=== PATIENT | male | born 1980 | race Caucasian/White ===

== ENCOUNTER 2017-12-03 08:07 | Inpatient (IN) | payer MEDICAID, OTHER ==
[~2017-12-03] VITALS: Ht 172.7 cm; Wt 103.0 kg
[2017-12-03 08:48] LABS: Basophils # (auto) 0.1 uL; Eosinophils # (auto) 0.3 uL; Lymphocytes # (auto) 2.6 uL
[2017-12-03 08:49] LABS: Basophils % (auto) 0.7 % (0.0-2.0); Eosinophils % (auto) 2.9 % (0.0-7.0); Hematocrit 40.1 % (41.0-53.0); Hemoglobin 12.7 g/dL (13.5-17.5); Lymphocytes % (auto) 26.8 % (10.0-50.0); Mean Corpuscular Hemoglobin 25.2 pg (28.0-32.0); Mean Corpuscular Hgb Conc. 31.7 g/dL (32.0-36.0); Mean Corpuscular Volume 79.6 fL (80.0-100.0); Monocytes # (auto) 1.1 uL; Neutrophils # (auto) 5.6 uL; Neutrophils % (auto) 58.6 % (37.0-80.0); Platelet Count (auto) 337 10^3/uL (140-450); Red Blood Cells 5.04 10^6/uL (4.5-5.90); Red Cell Distribution Width 16.2 % (11.8-14.3); White Blood Cell 9.6 10^3/uL (4.4-10.8)
[2017-12-03 09:06] LABS: Albumin 3.1 g/dL (3.4-5.0); BUN/Creatinine Ratio 25.6; Calcium 8.2 mg/dL (8.5-10.1); Magnesium 2.2 mg/dL (1.6-2.6); Potassium 4.1 mmol/L (3.5-5.1)
[2017-12-03 09:11] LABS: Bilirubin, Total 0.8 mg/dL (0.2-1.0); Total Protein 6.4 g/dL (6.4-8.2)
[2017-12-03] MEDS ORDERED: SODIUM CHLORIDE 0.9% 1,000 ML IV ONE (10:05)
[2017-12-03] MEDS ORDERED: SPIRONOLACTONE 25 MG TAB PO ONE (10:15)
[2017-12-03] MEDS ORDERED: FUROSEMIDE 40 MG/4 ML VIAL IV ONE ×2 (10:15→12:45)
[2017-12-03] MEDS ORDERED: LABETALOL HCL 5 MG/ML ML 20ML VIAL IV ONE (10:15)
[2017-12-03] MEDS ORDERED: PROMETHAZINE HCL 25 MG/ML 1ML IV PRN (11:15)
[2017-12-03] MEDS ORDERED: HYDROcodone-ACET 5/325MG TAB PO PRN (11:15)
[2017-12-03] MEDS ORDERED: NITROGLYCERIN 0.4 MG SL TAB SL PRN (11:15)
[2017-12-03] MEDS ORDERED: MORPHINE SULFATE 8mg/ml INJ SDV IV PRN ×2 (11:15)
[2017-12-03] MEDS ORDERED: LACTULOSE 20Gm/30ML SOLN PO PRN (11:15)
[2017-12-03] MEDS ORDERED: TEMAZEPAM 15 MG CAP PO PRN (11:15)
[2017-12-03] MEDS ORDERED: LORazepam 0.5 MG TAB PO PRN (11:15)
[2017-12-03] MEDS ORDERED: ACETAMINOPHEN 500 MG TAB PO PRN (11:15)
[2017-12-03] MEDS ORDERED: NITROGLYCERIN 0.2MG/HR TOPICAL PATCH TD SCH (11:30)
[2017-12-03] MEDS: ENALAPRIL MALEATE 2.5 MG TAB PO SCH (11:39)
[2017-12-03] MEDS: POTASSIUM CHL 20 Meq TABLET PO SCH (11:39)
[2017-12-03] MEDS: ENOXAPARIN SOD 40 MG/0.4 ML SYRINGE SC SCH (11:39)
[2017-12-03] MEDS: PANTOPRAZOLE 40 MG TAB PO SCH (11:39)
[2017-12-03] MEDS: ASPirin 81 mg TAB PO SCH (11:40)
[2017-12-03] MEDS: CARVEDILOL 3.125 MG TAB PO SCH ×2 (11:40→21:57)
[2017-12-03] MEDS ORDERED: POTASSIUM CHL 20 Meq TABLET PO ONE (12:45)
[2017-12-03] MEDS: SODIUM CHLOR 0.9% PF (SALINE LOCK) 10ML VIAL/SYR IV SCH ×2 (13:42→21:54)
[2017-12-03 15:25] VITALS: BP 145/96
[2017-12-03 16:48] VITALS: BP 139/82
[2017-12-03] MEDS: FUROSEMIDE 40 MG/4 ML VIAL IV SCH (17:39)
[2017-12-03 19:36] LABS: Alcohol, Urine < 3.0 mg/dL (0-5); Barbiturate Scree,Urine NEGATIVE (NEGATIVE); Benzodiazephine Screen, Urine NEGATIVE (NEGATIVE); Cannabinoid Screen, Urine NEGATIVE (NEGATIVE); Cocaine Screen, Urine NEGATIVE (NEGATIVE); Opiate Scree,Urine NEGATIVE (NEGATIVE); Phencyclidine Screen, Urine NEGATIVE (NEGATIVE)
[2017-12-03 19:47] LABS: Amphetamine Screen, Urine POSITIVE (NEGATIVE)
[2017-12-03 21:56] VITALS: BP 128/65
[2017-12-03] MEDS: ATORVASTATIN 20 MG TAB PO SCH (21:56)
[2017-12-04 05:00] VITALS: BP 128/79
[2017-12-04] MEDS: SODIUM CHLOR 0.9% PF (SALINE LOCK) 10ML VIAL/SYR IV SCH ×3 (05:36→22:14)
[2017-12-04] MEDS: FUROSEMIDE 40 MG/4 ML VIAL IV SCH ×2 (05:39→18:04)
[2017-12-04 07:30] LABS: Basophils # (auto) 0.1 uL; Eosinophils # (auto) 0.4 uL; Monocytes # (auto) 1.1 uL; Nucleated Red Blood Cells % 0.1 %
[2017-12-04 07:33] LABS: Basophils % (auto) 0.6 % (0.0-2.0); Eosinophils % (auto) 4.3 % (0.0-7.0); Hemoglobin 12.8 g/dL (13.5-17.5); Lymphocytes # (auto) 2.8 uL; Mean Corpuscular Hemoglobin 25.3 pg (28.0-32.0); Mean Corpuscular Hgb Conc. 31.9 g/dL (32.0-36.0); Mean Corpuscular Volume 79.3 fL (80.0-100.0); Monocytes % (auto) 13.1 % (0.0-12.0); Neutrophils # (auto) 4.3 uL; Platelet Count (auto) 317 10^3/uL (140-450); Red Blood Cells 5.05 10^6/uL (4.5-5.90); Red Cell Distribution Width 16.2 % (11.8-14.3); White Blood Cell 8.6 10^3/uL (4.4-10.8)
[2017-12-04 07:43] LABS: BUN/Creatinine Ratio 18.7; Bilirubin, Total 0.8 mg/dL (0.2-1.0); Calcium 8.4 mg/dL (8.5-10.1); Potassium 3.9 mmol/L (3.5-5.1); Total Protein 6.1 g/dL (6.4-8.2)
[2017-12-04] MEDS: POTASSIUM CHL 20 Meq TABLET PO SCH (08:48)
[2017-12-04] MEDS: PANTOPRAZOLE 40 MG TAB PO SCH (08:48)
[2017-12-04] MEDS: ENOXAPARIN SOD 40 MG/0.4 ML SYRINGE SC SCH (08:48)
[2017-12-04] MEDS: CARVEDILOL 3.125 MG TAB PO SCH ×2 (08:49→22:13)
[2017-12-04] MEDS: ASPirin 81 mg TAB PO SCH (08:49)
[2017-12-04] MEDS: ENALAPRIL MALEATE 2.5 MG TAB PO SCH (08:49)
[2017-12-04 08:59] VITALS: BP 148/85
[2017-12-04] MEDS ORDERED: FUROSEMIDE 40 MG/4 ML VIAL IV SCH (10:00)
[2017-12-04 11:45] LABS: % Iron Saturation 5.3 % (20-55)
[2017-12-04] MEDS ORDERED: CARVEDILOL 3.125 MG TAB PO ONE (12:15)
[2017-12-04 13:20] VITALS: BP 141/97
[2017-12-04 17:00] VITALS: BP 137/99
[2017-12-04 22:00] VITALS: BP 127/79
[2017-12-04] MEDS: ATORVASTATIN 20 MG TAB PO SCH (22:13)
[2017-12-05 04:52] LABS: Urine Bacteria NONE SEEN /hpf (None Seen); Urine Blood Negative /uL (Negative); Urine Specific Gravity 1.013 (1.001-1.035); Urine WBC 1 /hpf (0 - 3)
[2017-12-05 05:00] VITALS: BP 134/134
[2017-12-05] MEDS: SODIUM CHLOR 0.9% PF (SALINE LOCK) 10ML VIAL/SYR IV SCH ×3 (06:04→21:48)
[2017-12-05] MEDS: FUROSEMIDE 40 MG/4 ML VIAL IV SCH ×2 (06:04→17:49)
[2017-12-05 07:32] LABS: INR 1.06 (0.9-1.15); Partial Thromboplastin Time 25.2 sec (22.64-33.71); Prothrombin Time 11.6 sec (9.37-12.3)
[2017-12-05 07:43] LABS: Calcium 8.5 mg/dL (8.5-10.1); Magnesium 2.4 mg/dL (1.6-2.6); Potassium 4.4 mmol/L (3.5-5.1)
[2017-12-05] MEDS ORDERED: IODIXANOL 320MG/ML 100ML BTL IV ONE (07:50)
[2017-12-05] MEDS ORDERED: LIDOCAINE HCL 2 %PF INJ 10ML AMP IJ ONE (07:50)
[2017-12-05] MEDS: POTASSIUM CHL 20 Meq TABLET PO SCH (10:00)
[2017-12-05] MEDS: ENALAPRIL MALEATE 2.5 MG TAB PO SCH (10:00)
[2017-12-05] MEDS: PANTOPRAZOLE 40 MG TAB PO SCH (10:00)
[2017-12-05] MEDS: CARVEDILOL 3.125 MG TAB PO SCH ×2 (10:00→21:55)
[2017-12-05] MEDS ORDERED: MIDAZOLAM HCL 1MG/1ML-2 ML VIAL ONE (10:12)
[2017-12-05] MEDS ORDERED: fentaNYL CITRATE 100 MCG/2 ML VL ONE (10:12)
[2017-12-05] MEDS ORDERED: HEPARIN SODIUM (PORCINE) 5000 UNITS/ML 1ML VIAL ONE (10:18)
[2017-12-05 10:27] VITALS: BP 142/101
[2017-12-05] MEDS ORDERED: FUROSEMIDE 40 MG/4 ML VIAL ONE (10:59)
[2017-12-05] MEDS ORDERED: VERAPAMIL 2.5MG/ML INJ 2ML VIAL IV ONE (11:15)
[2017-12-05] MEDS ORDERED: ENALAPRIL MALEATE 2.5 MG TAB PO ONE ×2 (15:00)
[2017-12-05 17:02] VITALS: BP 140/85
[2017-12-05 21:30] VITALS: BP 131/75
[2017-12-06 04:53] VITALS: BP 133/76
[2017-12-06] MEDS: FUROSEMIDE 40 MG/4 ML VIAL IV SCH (05:32)
[2017-12-06 07:08] LABS: Potassium 3.8 mmol/L (3.5-5.1)
[2017-12-06 08:43] VITALS: BP 129/74
[2017-12-06 09:13] LABS: Basophils # (auto) 0.1 uL; Eosinophils # (auto) 0.4 uL; Lymphocytes # (auto) 2.8 uL; Nucleated Red Blood Cells % 0.1 %; White Blood Cell 8.8 10^3/uL (4.4-10.8)
[2017-12-06 09:15] LABS: Basophils % (auto) 1.1 % (0.0-2.0); Eosinophils % (auto) 4.3 % (0.0-7.0); Hematocrit 41.5 % (41.0-53.0); Mean Corpuscular Hemoglobin 24.8 pg (28.0-32.0); Mean Corpuscular Hgb Conc. 31.3 g/dL (32.0-36.0); Monocytes # (auto) 1.1 uL; Neutrophils # (auto) 4.5 uL; Neutrophils % (auto) 50.6 % (37.0-80.0); Platelet Count (auto) 348 10^3/uL (140-450); Red Blood Cells 5.25 10^6/uL (4.5-5.90); Red Cell Distribution Width 16.1 % (11.8-14.3)
[2017-12-06] MEDS ORDERED: ENALAPRIL MALEATE 10 MG TAB PO SCH (10:00)
[2017-12-06] MEDS: CARVEDILOL 3.125 MG TAB PO SCH (11:05)
[2017-12-06] MEDS: POTASSIUM CHL 20 Meq TABLET PO SCH (11:06)
[2017-12-06] MEDS: PANTOPRAZOLE 40 MG TAB PO SCH (11:06)
== END 2017-12-06 11:35 | disposition home or self-care (01) | DRG 192 ==
LOC: ER 08:07 → TELE 08:08 → TELE-EAST 15:37
PROVIDERS: ADMIT Internal Medicine; ATTEND Internal Medicine
PROC: 4A023N7 Measurement of Cardiac Sampling and Pressure, Left Heart, Percutaneous Approach (ICD-10-PCS; principal; 2017-12-05)
PROC: B2111ZZ Fluoroscopy of Multiple Coronary Arteries using Low Osmolar Contrast (ICD-10-PCS; 2017-12-05)
PROC: B2151ZZ Fluoroscopy of Left Heart using Low Osmolar Contrast (ICD-10-PCS; 2017-12-05)
DX: I11.0 Hypertensive heart disease with heart failure (principal); I42.8 Other cardiomyopathies; E44.1 Mild protein-calorie malnutrition; E66.01 Morbid (severe) obesity due to excess calories; D50.9 Iron deficiency anemia, unspecified; F17.210 Nicotine dependence, cigarettes, uncomplicated; I16.0 Hypertensive urgency; I50.23 Acute on chronic systolic (congestive) heart failure; E78.5 Hyperlipidemia, unspecified; Z86.73 Personal history of transient ischemic attack (TIA), and cerebral infarction without residual deficits; Z91.19 Patient's noncompliance with other medical treatment and regimen; Z88.0 Allergy status to penicillin; Z71.89 Other specified counseling; Z68.34 Body mass index [BMI] 34.0-34.9, adult
CPT/HCPCS: 36415; 71046; 80048; 80053; 80061; 80307; 81001; 82550; 83540; 83550; 83735; 83880; 84443; 84484; 85025; 85610; 85652; 85730; 86141; 86658; 86703; 86850; 86900; 86901; 93005; 93306; 93458; 94761; 96361; 96372; 96374; 96375; 99152; J2250; Q9967

== ENCOUNTER 2018-04-13 11:23 | Emergency (ER) | payer MEDICAID ==
[~2018-04-13] VITALS: Ht 172.7 cm; Wt 99.8 kg
[2018-04-13] MEDS ORDERED: FUROSEMIDE 40 MG/4 ML VIAL IV ONE ×3 (12:30→17:45)
[2018-04-13 13:13] LABS: Basophils # (auto) 0.1 uL; Eosinophils # (auto) 0.3 uL; Hematocrit 40.9 % (41.0-53.0); Monocytes % (auto) 11.9 % (0.0-12.0); Nucleated Red Blood Cells % 0.1 %
[2018-04-13 13:15] LABS: Basophils % (auto) 0.6 % (0.0-2.0); Eosinophils % (auto) 3.4 % (0.0-7.0); Hemoglobin 12.9 g/dL (13.5-17.5); Lymphocytes % (auto) 30.7 % (10.0-50.0); Mean Corpuscular Hemoglobin 23.9 pg (28.0-32.0); Mean Corpuscular Hgb Conc. 31.6 g/dL (32.0-36.0); Mean Corpuscular Volume 75.7 fL (80.0-100.0); Monocytes # (auto) 1.2 uL; Neutrophils # (auto) 5.2 uL; Neutrophils % (auto) 53.4 % (37.0-80.0); Platelet Count (auto) 320 10^3/uL (140-450); Red Blood Cells 5.41 10^6/uL (4.5-5.90); Red Cell Distribution Width 18.5 % (11.8-14.3); White Blood Cell 9.7 10^3/uL (4.4-10.8)
[2018-04-13 13:31] LABS: Albumin 3.1 g/dL (3.4-5.0); BUN/Creatinine Ratio 20.3; Calcium 8.5 mg/dL (8.5-10.1); Potassium 4.5 mmol/L (3.5-5.1)
[2018-04-13 13:36] LABS: Bilirubin, Total 1.2 mg/dL (0.2-1.0); Total Protein 6.8 g/dL (6.4-8.2)
[2018-04-13] MEDS ORDERED: IOHEXOL 350 MG/ML 100ML IJ ONE (14:17)
[2018-04-13 18:56] VITALS: BP 158/98
[2018-04-13 19:34] LABS: Alcohol, Urine < 3.0 mg/dL (0-5); Amphetamine Screen, Urine POSITIVE (NEGATIVE); Barbiturate Scree,Urine NEGATIVE (NEGATIVE); Benzodiazephine Screen, Urine NEGATIVE (NEGATIVE); Cannabinoid Screen, Urine NEGATIVE (NEGATIVE); Cocaine Screen, Urine NEGATIVE (NEGATIVE); Opiate Scree,Urine NEGATIVE (NEGATIVE); Phencyclidine Screen, Urine NEGATIVE (NEGATIVE)
== END 2018-04-13 19:07 | disposition home or self-care (01) ==
LOC: ER 11:27
DX: I11.0 Hypertensive heart disease with heart failure (principal); I50.9 Heart failure, unspecified; I16.0 Hypertensive urgency; F41.9 Anxiety disorder, unspecified; H10.9 Unspecified conjunctivitis; J45.909 Unspecified asthma, uncomplicated; F17.210 Nicotine dependence, cigarettes, uncomplicated
CPT/HCPCS: 36415; 71046; 71275; 80053; 80307; 83880; 84484; 85025; 85379; 93005; 96374; 96376; 99285; J1940; Q9967

== ENCOUNTER 2019-06-27 15:29 | Inpatient (IN) | payer MEDICAID ==
[~2019-06-27] VITALS: Ht 172.7 cm; Wt 104.5 kg
[2019-06-27 16:16] LABS: Basophils # (auto) 0.1 uL; Eosinophils # (auto) 0.5 uL; Lymphocytes # (auto) 1.5 uL; Nucleated Red Blood Cells % 0.1 %
[2019-06-27 16:18] LABS: Basophils % (auto) 1.6 % (0.0-2.0); Hematocrit 41.8 % (41.0-53.0); Hemoglobin 13.1 g/dL (13.5-17.5); Mean Corpuscular Hemoglobin 24.8 pg (28.0-32.0); Mean Corpuscular Hgb Conc. 31.4 g/dL (32.0-36.0); Mean Corpuscular Volume 79.1 fL (80.0-100.0); Monocytes # (auto) 1.3 uL; Monocytes % (auto) 15.9 % (0.0-12.0); Neutrophils # (auto) 4.8 uL; Neutrophils % (auto) 58.5 % (37.0-80.0); Platelet Count (auto) 324 10^3/uL (140-450); Red Blood Cells 5.28 10^6/uL (4.5-5.90); White Blood Cell 8.2 10^3/uL (4.4-10.8)
[2019-06-27 16:32] LABS: Albumin 3.2 g/dL (3.4-5.0); Calcium 8.3 mg/dL (8.5-10.1); Potassium 4.7 mmol/L (3.5-5.1)
[2019-06-27 16:39] LABS: BUN/Creatinine Ratio 22.7; Bilirubin, Total 1.5 mg/dL (0.2-1.0); Total Protein 7.1 g/dL (6.4-8.2)
[2019-06-27] MEDS ORDERED: ASPirin 81 mg TAB PO ONE (18:15)
[2019-06-27] MEDS ORDERED: FUROSEMIDE 40 MG/4 ML VIAL IV ONE (18:15)
[2019-06-27] MEDS ORDERED: TEMAZEPAM 15 MG CAP PO PRN (21:15)
[2019-06-27] MEDS ORDERED: ONDANSETRON HCL 4 MG/2 ML VIAL IV PRN (21:15)
[2019-06-27] MEDS ORDERED: ACETAMINOPHEN 325 MG TAB PO PRN (21:15)
[2019-06-27 21:30] LABS: Urine WBC None Seen /hpf (0 - 3)
[2019-06-27] MEDS ORDERED: NITROGLYCERIN 0.4 MG SL TAB SL PRN (21:30)
[2019-06-27] MEDS ORDERED: MORPHINE SULF INJ 2 MG/ML SYRINGE 1ML IV PRN (21:30)
[2019-06-27 21:36] LABS: Urine Bacteria NONE SEEN /hpf (None Seen); Urine Blood Negative /uL (Negative); Urine Specific Gravity 1.005 (1.001-1.035)
[2019-06-27 21:50] LABS: Alcohol, Urine < 3.0 mg/dL (0-5); Amphetamine Screen, Urine POSITIVE (NEGATIVE); Barbiturate Scree,Urine NEGATIVE (NEGATIVE); Benzodiazephine Screen, Urine NEGATIVE (NEGATIVE); Cannabinoid Screen, Urine NEGATIVE (NEGATIVE); Cocaine Screen, Urine NEGATIVE (NEGATIVE); Opiate Scree,Urine NEGATIVE (NEGATIVE); Phencyclidine Screen, Urine NEGATIVE (NEGATIVE)
[2019-06-27] MEDS: CARVEDILOL 3.125 MG TAB PO SCH (22:07)
[2019-06-27] MEDS: FAMOTIDINE 20 MG TAB PO SCH (22:07)
--- NOTE | 2019-06-27 22:35 | NUR ---
Received report from SEA Osman
--- NOTE | 2019-06-27 23:05 | NUR ---
Telemetry admit from ER BRYAN,ALIA admitted to Telemetry unit after SBAR received. Patient oriented to primary RN, unit, room, bed, and unit policies regarding patient care and visiting hours. Patient now on continuous telemetry monitoring, tele box #57. Patient placed on bedside oxygen, weighed by bedscale and encouraged to call if they need something. All questions and concerns addressed, patient verbalized understanding. Patient resting comfortably with no s/s of SOB and/or pain. Bed locked in lowest position and bed rails up x2. Call light within reach.
[2019-06-28] VITALS: BP 143/89
[2019-06-28 05:25] VITALS: BP 128/85
[2019-06-28] MEDS ORDERED: FUROSEMIDE 20 MG/2 ML VIAL IV SCH (06:00)
[2019-06-28 06:46] LABS: Eosinophils # (auto) 0.6 uL; Neutrophils # (auto) 3.7 uL; White Blood Cell 6.7 10^3/uL (4.4-10.8)
[2019-06-28 06:50] LABS: Basophils # (auto) 0 uL; Basophils % (auto) 0.7 % (0.0-2.0); Eosinophils % (auto) 8.5 % (0.0-7.0); Hematocrit 40.1 % (41.0-53.0); Hemoglobin 12.4 g/dL (13.5-17.5); Lymphocytes # (auto) 1.2 uL; Lymphocytes % (auto) 18.1 % (10.0-50.0); Mean Corpuscular Hemoglobin 24.6 pg (28.0-32.0); Mean Corpuscular Volume 79.3 fL (80.0-100.0); Monocytes # (auto) 1.2 uL; Monocytes % (auto) 17.4 % (0.0-12.0); Neutrophils % (auto) 55.3 % (37.0-80.0); Platelet Count (auto) 306 10^3/uL (140-450); Red Blood Cells 5.05 10^6/uL (4.5-5.90); Red Cell Distribution Width 16.7 % (11.8-14.3)
[2019-06-28 07:08] LABS: Calcium 8.4 mg/dL (8.5-10.1); Potassium 4.5 mmol/L (3.5-5.1)
[2019-06-28 07:17] LABS: BUN/Creatinine Ratio 22.3
--- NOTE | 2019-06-28 08:14 | NUR ---
Patient sitting on bed, eating breakfast. On O2 at 3 LPM. No acute distress noted.
[2019-06-28 09:00] VITALS: BP 146/92
[2019-06-28] MEDS: CARVEDILOL 3.125 MG TAB PO SCH (09:31)
[2019-06-28] MEDS: FAMOTIDINE 20 MG TAB PO SCH ×2 (09:31→21:57)
[2019-06-28] MEDS: ASPirin 81 mg TAB PO SCH (09:31)
[2019-06-28] MEDS ORDERED: LOSARTAN POTASSIUM 25 MG TAB PO SCH (10:00)
--- NOTE | 2019-06-28 12:50 | NUR ---
Patient's came over to the Nurse Station asking if patient can go downstairs with her and their kids.
--- NOTE | 2019-06-28 12:51 | NUR ---
Let the patient read the Against Medical Advice (AMA) for to smoke off unit. Patient and said they're staying in the room, patient will not go downstairs. Patient refused to sign the AMA form to smoke off unit. Addendum: 06/28/19 at 1307 by Latesha Raymond RN form
[2019-06-28 13:00] VITALS: BP 135/96
[2019-06-28] MEDS: FUROSEMIDE 40 MG/4 ML VIAL IV SCH ×2 (13:22→20:29)
--- NOTE | 2019-06-28 13:45 | NUR ---
came over to the Nurse Station, asked if patient can have a sandwich, patient was not able to finish his lunch.
--- NOTE | 2019-06-28 13:52 | NUR ---
Picked up the turkey sandwich from the Dietary. Panacea given to patient.
[2019-06-28 17:00] VITALS: BP 114/72
[2019-06-28] MEDS ORDERED: FUROSEMIDE 40 MG/4 ML VIAL IV SCH (18:00)
--- NOTE | 2019-06-28 19:30 | NUR ---
Opening Shift Note Assumed care of patient. Patient is awake and alert with family at bedside. No S/S of distress/SOB or pain. Instructed on POC and to call for assist PRN, will continue to monitor for changes. Bed locked in lowest position and bed rails up x2. Call light within reach.
[2019-06-28] MEDS: POTASSIUM CHL 10 Meq TABLET PO SCH (21:58)
[2019-06-28] MEDS: CARVEDILOL 12.5 MG TAB PO SCH (21:58)
[2019-06-28 22:41] VITALS: BP 138/96
[2019-06-29] MEDS: FUROSEMIDE 40 MG/4 ML VIAL IV SCH ×2 (03:54→11:58)
[2019-06-29 05:59] VITALS: BP 134/123
[2019-06-29 07:41] LABS: Calcium 8.7 mg/dL (8.5-10.1); Potassium 3.9 mmol/L (3.5-5.1)
[2019-06-29 07:43] LABS: BUN/Creatinine Ratio 22.9
--- NOTE | 2019-06-29 07:50 | NUR ---
Patient sitting on bed, eating breakfast.
--- NOTE | 2019-06-29 08:00 | NUR ---
Patient in bed, asleep, snoring noted. No acute distress noted.
[2019-06-29 09:00] VITALS: BP 133/81
--- NOTE | 2019-06-29 09:00 | NUR ---
Patient asleep, no acute distress noted. at bedside.
--- NOTE | 2019-06-29 09:20 | NUR ---
Unit La Nena Sullivan to page Dr. Wright for Cardiology Consult. Calls already placed yesterday, 06/28/[address] Wright and on 06/27/[address] Cast.
[2019-06-29] MEDS: ASPirin 81 mg TAB PO SCH (09:45)
[2019-06-29] MEDS: POTASSIUM CHL 10 Meq TABLET PO SCH (09:45)
[2019-06-29] MEDS: FAMOTIDINE 20 MG TAB PO SCH (09:45)
[2019-06-29] MEDS: CARVEDILOL 12.5 MG TAB PO SCH (09:46)
--- NOTE | 2019-06-29 09:48 | NUR ---
Patient's said the patient is not using Amphetamines for a year now.
[2019-06-29] MEDS ORDERED: ENOXAPARIN SOD 40 MG/0.4 ML SYRINGE SC SCH (10:00)
--- NOTE | 2019-06-29 10:45 | NUR ---
Patient and are very upset that Dr. Wright has not seen the patient for Cardiology Consult since he was admitted at the hospital.
--- NOTE | 2019-06-29 10:50 | NUR ---
Called Dr. Seals. Phone on voicemail. Left a message that patient and are very upset that Dr. Wright has not seen the patient for Cardiology Consult since he was admitted at [facility].
--- NOTE | 2019-06-29 11:40 | NUR ---
Received a call from Dr. Wright that Dr. Holland is already seeing the patient for Cardiology Consult. Addendum: 06/29/19 at 1226 by Latesha Raymond RN from Dr. Wright's office
--- NOTE | 2019-06-29 12:15 | NUR ---
Patient's called back, angry, said that she called Dr. Wright's office and he was told that Dr. Wright's office did not receive the page. Explained to that I already received a call back from Dr. Wright's office earlier that Dr. Holland is already seeing the patient for Cardiology Consult.
--- NOTE | 2019-06-29 12:19 | NUR ---
Dr. Holland came over.
--- NOTE | 2019-06-29 12:20 | NUR ---
Dr. [facility] at [facility]. Addendum: 06/29/19 at 1329 by Latesha Raymond RN Dr. Holland
--- NOTE | 2019-06-29 12:20 | NUR ---
Dr. Wright at bedside. said he has seen the patient yesterday, met his and kids. Patient and told me this morning that they haven't seen the heart doctor. Patient starting cursing Dr. Holland. Dr. Holland left the room. said let Dr. Seals know. Addendum: 06/29/19 at 1252 by Latesha Raymond RN Dr. Holland at bedside.
--- NOTE | 2019-06-29 12:25 | NUR ---
Patient started cursing again, verbalized "I'll call my paediatric thoracic physician, you fucking treat me like a retard, like stupid!" Patient made aware no employee here at the hospital treat him or see him like that. Patient asked to remove his IV line. Informed patient he's leaving against medical advice, he will have to sign an AMA form. Patient angrily verbalized "I'm no fucking signing any papers!" Patient called his using the bedside phone. Patient refused to let me remove his ID wristband. I will return Telemetry pack to ICU.
--- NOTE | 2019-06-29 12:28 | NUR ---
IV line removed, IV catheter intact, pressure dressing applied.
--- NOTE | 2019-06-29 12:48 | NUR ---
Patient left the hospital Against Medical Advice.
[2019-06-29 13:00] VITALS: BP 132/99
--- NOTE | 2019-06-29 13:10 | NUR ---
Called Dr. Seals. Phone on voicemail. Left a message that patient left the hospital against medical advice.
== END 2019-06-29 12:48 | disposition left against medical advice (07) | DRG 205 ==
LOC: ER 15:36 → TELE 15:37 → TELE-WESTW 23:01
PROVIDERS: ADMIT Nurse Practitioner; ATTEND Hospitalist
DX: I42.7 Cardiomyopathy due to drug and external agent (principal); I50.43 Acute on chronic combined systolic (congestive) and diastolic (congestive) heart failure; I11.0 Hypertensive heart disease with heart failure; F15.10 Other stimulant abuse, uncomplicated; F17.210 Nicotine dependence, cigarettes, uncomplicated; T43.625A Adverse effect of amphetamines, initial encounter; J45.909 Unspecified asthma, uncomplicated; Z80.9 Family history of malignant neoplasm, unspecified; Z82.49 Family history of ischemic heart disease and other diseases of the circulatory system; Z91.19 Patient's noncompliance with other medical treatment and regimen; Z91.14 Patient's other noncompliance with medication regimen; Z88.0 Allergy status to penicillin; Y92.89 Other specified places as the place of occurrence of the external cause; Z53.29 Procedure and treatment not carried out because of patient's decision for other reasons
CPT/HCPCS: 36415; 71045; 80048; 80053; 80307; 81001; 83880; 84484; 85025; 93005; 93306; 94761; 96374; 96375; G0378

== ENCOUNTER 2020-06-04 10:11 | Emergency (ER) | payer MEDICAID ==
[~2020-06-04] VITALS: Ht 172.7 cm; Wt 90.7 kg
[2020-06-04 10:18] VITALS: BP 159/89
== END 2020-06-04 11:21 | disposition home or self-care (01) ==
LOC: ER 10:11
DX: S61.211A Laceration without foreign body of left index finger without damage to nail, initial encounter (principal); J45.909 Unspecified asthma, uncomplicated; I10 Essential (primary) hypertension; Z88.0 Allergy status to penicillin; W22.8XXA Striking against or struck by other objects, initial encounter; Y93.89 Activity, other specified; Y92.89 Other specified places as the place of occurrence of the external cause; Y99.8 Other external cause status
CPT/HCPCS: 12001; 73140

== ENCOUNTER 2020-06-15 16:20 | Emergency (ER) | payer MEDICAID ==
[~2020-06-15] VITALS: Ht 172.7 cm; Wt 113.4 kg
[2020-06-15 18:28] VITALS: BP 140/98
== END 2020-06-15 18:37 | disposition home or self-care (01) ==
LOC: ER 16:20
DX: S61.211D Laceration without foreign body of left index finger without damage to nail, subsequent encounter (principal); I10 Essential (primary) hypertension; J45.909 Unspecified asthma, uncomplicated; F17.210 Nicotine dependence, cigarettes, uncomplicated; Z88.0 Allergy status to penicillin; X58.XXXD Exposure to other specified factors, subsequent encounter

== ENCOUNTER 2021-02-26 08:54 | Emergency (ER) | payer MEDICAID ==
[~2021-02-26] VITALS: Ht 172.7 cm; Wt 97.5 kg
[2021-02-26] MEDS ORDERED: ASPirin 81 mg TAB PO ONE (09:15)
[2021-02-26 10:02] LABS: Basophils # (auto) 0.1 10 ^3/uL (0-0.2); Basophils % (auto) 0.8 % (0.0-2.0); Eosinophils # (auto) 0.5 10 ^3/uL (0-0.8); Hematocrit 45.9 % (41.0-53.0); Hemoglobin 15.6 g/dL (13.5-17.5); Lymphocytes # (auto) 1.6 10 ^3/uL (0.4-5.4); Mean Corpuscular Hemoglobin 29.2 pg (28.0-32.0); Mean Corpuscular Hgb Conc. 33.9 g/dL (32.0-36.0); Mean Corpuscular Volume 86.2 fL (80.0-100.0); Monocytes % (auto) 8.6 % (0.0-12.0); Neutrophils # (auto) 8.5 10 ^3/uL (1.6-8.6); Neutrophils % (auto) 72.6 % (37.0-80.0); Nucleated Red Blood Cells % 0.1 %; Platelet Count (auto) 300 10^3/uL (140-450); Red Blood Cells 5.33 10^6/uL (4.5-5.90); Red Cell Distribution Width 13.7 % (11.8-14.3); White Blood Cell 11.6 10^3/uL (4.4-10.8)
[2021-02-26 10:26] LABS: Albumin 4.2 g/dL (3.4-5.0); Anion Gap 9 (5-15); Blood Urea Nitrogen 22 mg/dL (7-18); Calcium 8.7 mg/dL (8.5-10.1); Carbon Dioxide 25 mmol/L (21-32); Chloride 105 mmol/L (98-107); Glucose 139 mg/dL (74-106); Potassium 3.6 mmol/L (3.5-5.1); Sodium 139 mmol/L (136-145)
[2021-02-26 10:34] LABS: Alanine Aminotransferase 27 U/L (16-61); Alkaline Phosphatase 135 U/L (45-117); Aspartate Aminotransferase 18 U/L (15-37); BUN/Creatinine Ratio 17.2; Bilirubin, Total 0.7 mg/dL (0.2-1.0); GFR African American 80 mL/min; GFR Non-African American 66 mL/min; Total Protein 7.9 g/dL (6.4-8.2)
[2021-02-26 11:47] VITALS: BP 145/69
== END 2021-02-26 11:56 | disposition home or self-care (01) ==
LOC: ER 08:54
DX: R07.2 Precordial pain (principal); I11.0 Hypertensive heart disease with heart failure; I50.9 Heart failure, unspecified; F17.210 Nicotine dependence, cigarettes, uncomplicated; Z88.0 Allergy status to penicillin
CPT/HCPCS: 36415; 71045; 80053; 83880; 84484; 85025; 85049

== ENCOUNTER 2021-08-13 11:46 | Emergency (ER) | payer MEDICAID ==
[~2021-08-13] VITALS: Ht 172.7 cm; Wt 99.8 kg
[2021-08-13] MEDS ORDERED: KETOROLAC TROMETH 60MG/2ML VIAL IM ONE (13:30)
[2021-08-13] MEDS ORDERED: BACL20TA PO (13:47)
[2021-08-13] MEDS ORDERED: IBUP800T27 PO ×2 (13:47→13:51)
[2021-08-13] MEDS ORDERED: BACL10TA PO (13:51)
[2021-08-13 14:00] VITALS: BP 148/85
== END 2021-08-13 14:01 | disposition home or self-care (01) ==
LOC: ER 11:46
DX: S29.011A Strain of muscle and tendon of front wall of thorax, initial encounter (principal); I11.0 Hypertensive heart disease with heart failure; I50.9 Heart failure, unspecified; F17.210 Nicotine dependence, cigarettes, uncomplicated; Z79.1 Long term (current) use of non-steroidal anti-inflammatories (NSAID); Z79.899 Other long term (current) drug therapy; Z88.0 Allergy status to penicillin; X50.1XXA Overexertion from prolonged static or awkward postures, initial encounter; Y93.89 Activity, other specified; Y92.89 Other specified places as the place of occurrence of the external cause; Y99.8 Other external cause status
CPT/HCPCS: 71101; 96372; 99283; J1885

== ENCOUNTER 2022-10-18 07:40 | Inpatient (IN) | payer BC, MEDICAID ==
[~2022-10-18] VITALS: Ht 172.7 cm; Wt 111.5 kg
[~2022-10-18 07:40] MED LIST: BACL10TA PO; IBUP800T27 PO
[2022-10-18 08:44] LABS: Basophils # (auto) 0.1 10 ^3/uL (0-0.2); Basophils % (auto) 0.6 % (0.0-2.0); Eosinophils # (auto) 0.4 10 ^3/uL (0-0.8); Mean Corpuscular Hgb Conc. 32.6 g/dL (32.0-36.0); Mean Corpuscular Volume 82.3 fL (80.0-100.0); Monocytes # (auto) 1.2 10 ^3/uL (0-1.3); Neutrophils # (auto) 7.2 10 ^3/uL (1.6-8.6); Nucleated Red Blood Cells % 0.1 %; Red Cell Distribution Width 16.2 % (11.8-14.3)
[2022-10-18 08:47] LABS: Hematocrit 37.7 % (41.0-53.0); Hemoglobin 12.3 g/dL (13.5-17.5); Lymphocytes # (auto) 1.1 10 ^3/uL (0.4-5.4); Mean Corpuscular Hemoglobin 26.8 pg (28.0-32.0); Monocytes % (auto) 12.5 % (0.0-12.0); Neutrophils % (auto) 71.9 % (37.0-80.0); Red Blood Cells 4.58 10^6/uL (4.5-5.90)
[2022-10-18 09:38] LABS: Albumin 3.5 g/dL (3.4-5.0); Calcium 8.6 mg/dL (8.5-10.1); Potassium 3.7 mmol/L (3.5-5.1)
[2022-10-18 09:44] LABS: BUN/Creatinine Ratio 18.3; Bilirubin, Total 0.8 mg/dL (0.2-1.0); Total Protein 6.4 g/dL (6.4-8.2)
[2022-10-18] MEDS ORDERED: SACU1TAB7 PO (13:26)
[2022-10-18] MEDS ORDERED: POTASSIUM CHL 20 Meq TABLET PO ONE (13:30)
[2022-10-18] MEDS ORDERED: hydrALAZINE HCL 20 MG/ML VL IV PRN (13:30)
[2022-10-18] MEDS ORDERED: FUROSEMIDE 40 MG/4 ML VIAL IV ONE (13:30)
[2022-10-18] MEDS ORDERED: NITROGLYCERIN 0.4 MG SL TAB SL PRN (13:30)
[2022-10-18] MEDS ORDERED: PANTOPRAZOLE 40 MG/10 ML VIAL INJ IV ONE (13:30)
[2022-10-18] MEDS ORDERED: MORPHINE SULFATE INJ 2 MG/ml SYRG IV PRN (13:30)
[2022-10-18] MEDS ORDERED: NICOTINE 7MG/24HR TOPICAL PATCH TD ONE (13:30)
[2022-10-18 14:45] LABS: Cholesterol 107 mg/dL (< 200)
[2022-10-18 14:48] LABS: HDL Cholesterol 41 mg/dL (40-59); LDL Cholesterol 65 mg/dL (< 100); Triglycerides 51 mg/dL (< 150)
[2022-10-19 05:01] LABS: Basophils # (auto) 0.1 10 ^3/uL (0-0.2); Basophils % (auto) 0.8 % (0.0-2.0); Eosinophils # (auto) 0.5 10 ^3/uL (0-0.8); Eosinophils % (auto) 5.1 % (0.0-7.0); Hematocrit 38.1 % (41.0-53.0); Hemoglobin 12.4 g/dL (13.5-17.5); Lymphocytes # (auto) 1.8 10 ^3/uL (0.4-5.4); Lymphocytes % (auto) 16.8 % (10.0-50.0); Mean Corpuscular Hemoglobin 27.1 pg (28.0-32.0); Mean Corpuscular Hgb Conc. 32.7 g/dL (32.0-36.0); Monocytes # (auto) 1.6 10 ^3/uL (0-1.3); Monocytes % (auto) 15.2 % (0.0-12.0); Neutrophils # (auto) 6.7 10 ^3/uL (1.6-8.6); Neutrophils % (auto) 62.1 % (37.0-80.0); Red Blood Cells 4.59 10^6/uL (4.5-5.90); Red Cell Distribution Width 16.1 % (11.8-14.3); White Blood Cell 10.8 10^3/uL (4.4-10.8)
[2022-10-19 05:21] LABS: Albumin 3.3 g/dL (3.4-5.0); Calcium 8.2 mg/dL (8.5-10.1); Potassium 3.5 mmol/L (3.5-5.1)
[2022-10-19 05:26] LABS: Bilirubin, Total 0.7 mg/dL (0.2-1.0); Total Protein 6.5 g/dL (6.4-8.2)
[2022-10-19] MEDS ORDERED: NICOTINE 7MG/24HR TOPICAL PATCH TD SCH (10:00)
[2022-10-19] MEDS ORDERED: FUROSEMIDE 20 MG/2 ML VIAL IV SCH (10:00)
[2022-10-19] MEDS: SACUBITRIL-VALSARTAN 24mg/26mg TAB PO SCH ×2 (10:46→22:25)
[2022-10-19] MEDS: POTASSIUM CHL 20 Meq TABLET PO SCH (10:47)
[2022-10-19] MEDS: ENOXAPARIN SOD 40 MG/0.4 ML SYRINGE SC SCH (10:48)
[2022-10-19] MEDS: PANTOPRAZOLE 40 MG/10 ML VIAL INJ IV SCH (10:52)
[2022-10-19] MEDS ORDERED: CARVEDILOL 12.5 MG TAB PO ONE (11:00)
[2022-10-19] MEDS ORDERED: FUROSEMIDE 20 MG/2 ML VIAL IV ONE (11:00)
[2022-10-19] MEDS ORDERED: NICOTINE 14 MG/24HR TOPICAL PATCH TD ONE (11:15)
[2022-10-19 11:28] VITALS: BP 166/101
[2022-10-19 18:20] VITALS: BP 135/91
[2022-10-19] MEDS: FUROSEMIDE 40 MG/4 ML VIAL IV SCH (19:04)
[2022-10-19] MEDS: CARVEDILOL 12.5 MG TAB PO SCH (22:26)
[2022-10-19 22:38] LABS: Urine Bacteria NONE SEEN /hpf (None Seen); Urine Blood Negative /uL (Negative); Urine Specific Gravity 1.006 (1.001-1.035); Urine WBC <1 /hpf (0 - 3)
[2022-10-19 22:49] LABS: Alcohol, Urine < 3.0 mg/dL (0-10); Amphetamine Screen, Urine NEGATIVE (NEGATIVE); Barbiturate Scree,Urine NEGATIVE (NEGATIVE); Benzodiazephine Screen, Urine NEGATIVE (NEGATIVE); Cannabinoid Screen, Urine NEGATIVE (NEGATIVE); Cocaine Screen, Urine NEGATIVE (NEGATIVE); Opiate Scree,Urine NEGATIVE (NEGATIVE); Phencyclidine Screen, Urine NEGATIVE (NEGATIVE)
[2022-10-20 05:03] VITALS: BP 129/88
[2022-10-20] MEDS: FUROSEMIDE 40 MG/4 ML VIAL IV SCH ×2 (06:21→18:00)
[2022-10-20 06:29] LABS: Basophils # (auto) 0 10 ^3/uL (0-0.2); Basophils % (auto) 0.4 % (0.0-2.0); Eosinophils # (auto) 0.5 10 ^3/uL (0-0.8); Hemoglobin 12.6 g/dL (13.5-17.5); Red Cell Distribution Width 16.1 % (11.8-14.3)
[2022-10-20 06:31] LABS: Eosinophils % (auto) 5.3 % (0.0-7.0); Hematocrit 38.9 % (41.0-53.0); Lymphocytes # (auto) 1.4 10 ^3/uL (0.4-5.4); Mean Corpuscular Hemoglobin 26.8 pg (28.0-32.0); Mean Corpuscular Hgb Conc. 32.3 g/dL (32.0-36.0); Mean Corpuscular Volume 82.8 fL (80.0-100.0); Monocytes # (auto) 1.6 10 ^3/uL (0-1.3); Monocytes % (auto) 17.1 % (0.0-12.0); Neutrophils # (auto) 5.7 10 ^3/uL (1.6-8.6); Neutrophils % (auto) 62.2 % (37.0-80.0); White Blood Cell 9.2 10^3/uL (4.4-10.8)
[2022-10-20 06:38] LABS: BUN/Creatinine Ratio 19.8; Calcium 8.6 mg/dL (8.5-10.1); Potassium 3.7 mmol/L (3.5-5.1)
[2022-10-20] MEDS ORDERED: EMPAGLIFLOZIN 10 MG TAB PO SCH (07:00)
[2022-10-20] MEDS: POTASSIUM CHL 20 Meq TABLET PO SCH (09:06)
[2022-10-20] MEDS: PANTOPRAZOLE 40 MG/10 ML VIAL INJ IV SCH (09:07)
[2022-10-20] MEDS: CARVEDILOL 12.5 MG TAB PO SCH (09:07)
[2022-10-20] MEDS: ENOXAPARIN SOD 40 MG/0.4 ML SYRINGE SC SCH (09:08)
[2022-10-20] MEDS: SACUBITRIL-VALSARTAN 24mg/26mg TAB PO SCH (09:37)
[2022-10-20 09:44] VITALS: BP 131/76
[2022-10-20] MEDS ORDERED: NICOTINE 14 MG/24HR TOPICAL PATCH TD SCH (10:00)
[2022-10-20 16:29] VITALS: BP 136/77
[2022-10-20] MEDS ORDERED: NIC21P TOP (16:32)
[2022-10-20] MEDS ORDERED: FURO1TAB33 PO (16:32)
[2022-10-20 16:51] VITALS: BP 132/87
== END 2022-10-20 19:00 | disposition home or self-care (01) | DRG 291 ==
LOC: ER 07:40 → TELE 13:26 → TELE-E-ADS 10-19 10:26 → TELE-WESTW 10-19 18:10
PROVIDERS: ADMIT Registered Nurse; ATTEND Nurse Practitioner Acute Care
DX: I11.0 Hypertensive heart disease with heart failure (principal); I50.43 Acute on chronic combined systolic (congestive) and diastolic (congestive) heart failure; E66.01 Morbid (severe) obesity due to excess calories; Z20.822 Contact with and (suspected) exposure to COVID-19; I27.20 Pulmonary hypertension, unspecified; R73.03 Prediabetes; I42.0 Dilated cardiomyopathy; F17.210 Nicotine dependence, cigarettes, uncomplicated; Z80.9 Family history of malignant neoplasm, unspecified; Z82.49 Family history of ischemic heart disease and other diseases of the circulatory system; Z88.0 Allergy status to penicillin; Z68.37 Body mass index [BMI] 37.0-37.9, adult
CPT/HCPCS: 36415; 76604; 80048; 80053; 80061; 80307; 81001; 83036; 83880; 84443; 85025; 85379; 87426; 93306; 93970; C9113; G0378

== ENCOUNTER 2023-04-27 17:43 | Emergency (ER) | payer BC, MEDICAID ==
[~2023-04-27] VITALS: Ht 172.7 cm; Wt 112.8 kg
[~2023-04-27 17:43] MED LIST changes: +FURO1TAB33 PO; +IBUP-1456 PO; -IBUP800T27 PO; +NIC21P TOP; +SACU1TAB7 PO
[2023-04-27] MEDS ORDERED: cloNIDine HCL 0.1 MG TAB PO ONE (18:15)
[2023-04-27] MEDS ORDERED: LABETALOL HCL 5 MG/ML 4ML SYRINGE IV ONE (19:00)
[2023-04-27 20:22] LABS: Basophils # (auto) 0.1 10 ^3/uL (0-0.2); Eosinophils # (auto) 0.3 10 ^3/uL (0-0.8); Eosinophils % (auto) 2.4 % (0.0-7.0); Hematocrit 52.3 % (41.0-53.0); Hemoglobin 17.3 g/dL (13.5-17.5); Lymphocytes # (auto) 2.6 10 ^3/uL (0.4-5.4); Lymphocytes % (auto) 18.5 % (10.0-50.0); Mean Corpuscular Hemoglobin 31.2 pg (28.0-32.0); Mean Corpuscular Volume 94.4 fL (80.0-100.0); Monocytes # (auto) 1.4 10 ^3/uL (0-1.3); Monocytes % (auto) 9.9 % (0.0-12.0); Neutrophils # (auto) 9.4 10 ^3/uL (1.6-8.6); Neutrophils % (auto) 68.2 % (37.0-80.0); Red Blood Cells 5.54 10^6/uL (4.5-5.90); Red Cell Distribution Width 15.2 % (11.8-14.3); White Blood Cell 13.8 10^3/uL (4.4-10.8)
[2023-04-27 20:36] LABS: Alanine Aminotransferase 38 U/L (7-40); Albumin 4.4 g/dL (3.2-4.8); Alkaline Phosphatase 148 U/L (46-116); Anion Gap 9.6 (5-15); Aspartate Aminotransferase 30 U/L (13-40); BUN/Creatinine Ratio 13.7 (10.0-20.0); Bilirubin, Total 0.7 mg/dL (0.2-1.0); Blood Urea Nitrogen 16 mg/dL (9-23); Calcium 9.3 mg/dL (8.5-10.1); Carbon Dioxide 24.4 mmol/L (20-30); Chloride 103 mmol/L (98-107); Glucose 116 mg/dL (74-106); Sodium 137 mmol/L (136-145); Total Protein 6.9 g/dL (5.7-8.2)
[2023-04-27] MEDS ORDERED: MOXI0.5S3 OP (20:40)
[2023-04-27] MEDS ORDERED: NITROGLYCERIN 0.4 MG SL TAB SL ONE (20:45)
[2023-04-27 21:40] LABS: Erythrocyte Sedimentation Rate 1 mm/hr (0-20)
[2023-04-28 04:05] VITALS: PULSE 89; RESP 18; O2SAT 92
[2023-04-28 06:00] VITALS: BP 161/80; PULSE 87; RESP 16; TEMP 98.7; O2SAT 96
== END 2023-04-28 06:12 | disposition home or self-care (01) ==
LOC: ER 17:43
DX: H10.9 Unspecified conjunctivitis (principal); H11.32 Conjunctival hemorrhage, left eye; I11.0 Hypertensive heart disease with heart failure; I50.89 Other heart failure; F17.210 Nicotine dependence, cigarettes, uncomplicated; Z88.0 Allergy status to penicillin; Z79.899 Other long term (current) drug therapy
CPT/HCPCS: 36415; 70450; 80053; 83880; 84484; 85025; 85652; 86141; 93005; 96374; 99285; J3490

== ENCOUNTER 2023-09-22 13:41 | Emergency (ER) | payer BC, MEDICAID ==
[~2023-09-22] VITALS: Ht 172.7 cm; Wt 118.8 kg
[~2023-09-22 13:41] MED LIST changes: +MOXI0.5S3 OP
[2023-09-22] MEDS ORDERED: cloNIDine HCL 0.1 MG TAB PO ONE (15:00)
[2023-09-22] MEDS ORDERED: HYDROcodone-ACET 5/325MG TAB PO ONE (15:15)
[2023-09-22 16:27] VITALS: BP 164/75; PULSE 81; RESP 18; TEMP 98; O2SAT 94
[2023-09-22] MEDS ORDERED: IBUP-1456 PO (16:29)
[2023-09-22] MEDS ORDERED: CAR125T PO (16:29)
[2023-09-22] MEDS ORDERED: SACU1TAB7 PO (16:29)
[2023-09-22] MEDS ORDERED: FUROSEMIDE 20 MG TAB PO ONE (16:30)
== END 2023-09-22 16:41 | disposition home or self-care (01) ==
LOC: ER 13:41
DX: S29.011A Strain of muscle and tendon of front wall of thorax, initial encounter (principal); I11.0 Hypertensive heart disease with heart failure; I50.9 Heart failure, unspecified; F17.210 Nicotine dependence, cigarettes, uncomplicated; Z79.1 Long term (current) use of non-steroidal anti-inflammatories (NSAID); Z79.899 Other long term (current) drug therapy; Z88.0 Allergy status to penicillin; W22.8XXA Striking against or struck by other objects, initial encounter; Y93.89 Activity, other specified; Y92.89 Other specified places as the place of occurrence of the external cause; Y99.8 Other external cause status
CPT/HCPCS: 71101

== ENCOUNTER 2024-05-24 19:02 | Inpatient (IN) | payer MEDICAID ==
[~2024-05-24] VITALS: Ht 172.7 cm; Wt 116.3 kg
[~2024-05-24 19:02] MED LIST changes: +CAR125T PO; +CLIN-203 PO; +SACU1TAB PO
[2024-05-24] MEDS: ALBUTEROL SULF 2.5 MG/0.5ML(0.5%) NEB SOLN NEB ONE (20:08)
[2024-05-24] MEDS: IPRATROPIUM BROM 0.5 MG/2.5ML INH SOL NEB ONE (20:09)
[2024-05-24] MEDS: NITROGLYCERIN 0.4 MG SL TAB SL ONE (20:13)
[2024-05-24] MEDS: ALBUTEROL SULF 2.5 MG/0.5ML(0.5%) NEB SOLN ONE (20:13)
[2024-05-24] MEDS: IPRATROPIUM BROM 0.5 MG/2.5ML INH SOL ONE (20:13)
[2024-05-24] MEDS: LABETALOL HCL 20 MG/4 ML VL IV ONE (20:14)
[2024-05-24] MEDS: methylPREDNISolone SOD SUCC 125 MG/2 ML VL IV ONE (20:17)
[2024-05-24] MEDS: FUROSEMIDE 40 MG/4 ML VIAL IV ONE (20:17)
[2024-05-24 20:28] LABS: Basophils # (auto) 0.1 10 ^3/uL (0-0.2); Basophils % (auto) 0.4 % (0.0-2.0); Eosinophils # (auto) 0.6 10 ^3/uL (0-0.8); Eosinophils % (auto) 4.7 % (0.0-7.0); Hematocrit 39.2 % (41.0-53.0); Hemoglobin 13.3 g/dL (13.5-17.5); Lymphocytes # (auto) 1.9 10 ^3/uL (0.4-5.4); Lymphocytes % (auto) 15.1 % (10.0-50.0); Mean Corpuscular Hemoglobin 32.1 pg (28.0-32.0); Mean Corpuscular Hgb Conc. 33.9 g/dL (32.0-36.0); Mean Corpuscular Volume 94.6 fL (80.0-100.0); Monocytes # (auto) 1.4 10 ^3/uL (0-1.3); Monocytes % (auto) 11.1 % (0.0-12.0); Neutrophils # (auto) 8.5 10 ^3/uL (1.6-8.6); Neutrophils % (auto) 68.7 % (37.0-80.0); Platelet Count (auto) 287 10^3/uL (140-450); Red Blood Cells 4.14 10^6/uL (4.5-5.90); White Blood Cell 12.4 10^3/uL (4.4-10.8)
[2024-05-24 20:30] LABS: Alanine Aminotransferase 16 U/L (7-40); Albumin 4.3 g/dL (3.2-4.8); Alkaline Phosphatase 126 U/L (46-116); Anion Gap 7 (5-15); Aspartate Aminotransferase 13 U/L (13-40); BUN/Creatinine Ratio 8.1 (10.0-20.0); Bilirubin, Total 0.7 mg/dL (0.2-1.0); Blood Urea Nitrogen 14 mg/dL (9-23); Calcium 9.1 mg/dL (8.7-10.4); Carbon Dioxide 28 mmol/L (20-31); Chloride 104 mmol/L (98-107); Glucose 109 mg/dL (74-106); Magnesium 2.1 mg/dL (1.6-2.6); Potassium 3.5 mmol/L (3.5-5.1); Sodium 139 mmol/L (136-145); Total Protein 6.9 g/dL (5.7-8.2)
[2024-05-24 21:15] VITALS: PULSE 99; RESP 20; O2SAT 96
[2024-05-24] MEDS: ASPirin-EC 325mg tab PO ONE (21:18)
[2024-05-24] MEDS: cefTRIAXone 1GM/50ML D5W 50 ML IV ONE (21:19)
[2024-05-24] MEDS ORDERED: ACETAMINOPHEN 325 MG TAB PO PRN (23:15)
[2024-05-24] MEDS ORDERED: ONDANSETRON HCL 4 MG/2 ML VIAL IV PRN (23:15)
[2024-05-24] MEDS ORDERED: MORPHINE SULFATE INJ 2 MG/ml SYRG IV PRN (23:15)
[2024-05-24] MEDS ORDERED: HYDROcodone-ACET 5/325MG TAB PO PRN (23:15)
[2024-05-24] MEDS ORDERED: NITROGLYCERIN 0.4 MG SL TAB SL PRN (23:15)
[2024-05-24] MEDS: ATORVASTATIN 20 MG TAB PO SCH (23:22)
[2024-05-24] MEDS: CARVEDILOL 12.5 MG TAB PO SCH (23:22)
[2024-05-24 23:30] VITALS: BP 179/115; PULSE 95; RESP 20; TEMP 98.2; O2SAT 96
[2024-05-24 23:35] LABS: INR 1.08 (0.9-1.15); Prothrombin Time 11.4 sec (9.3-11.8)
[2024-05-24] MEDS: HEPARIN SODIUM (PORCINE) 5000 UNITS/ML 1ML VIAL IV SCH (23:54)
[2024-05-25] VITALS (9 sets, daily range): BP systolic 138–140; BP diastolic 78–98; PULSE 89–101; RESP 15–22; TEMP 98–98.1; O2SAT 92–100
[2024-05-25 06:17] LABS: Chloride 105 mmol/L (98-107); Potassium 4.4 mmol/L (3.5-5.1); Sodium 139 mmol/L (136-145)
[2024-05-25 06:18] LABS: Anion Gap 8 (5-15); Carbon Dioxide 26 mmol/L (20-31)
[2024-05-25 06:19] LABS: Calcium 9.3 mg/dL (8.7-10.4)
[2024-05-25 06:23] LABS: Glucose 157 mg/dL (74-106)
[2024-05-25 06:28] LABS: BUN/Creatinine Ratio 11.2 (10.0-20.0); Blood Urea Nitrogen 19 mg/dL (9-23)
[2024-05-25 06:33] LABS: Hematocrit 40.4 % (41.0-53.0); Hemoglobin 13.5 g/dL (13.5-17.5); Mean Corpuscular Hemoglobin 32.1 pg (28.0-32.0); Mean Corpuscular Hgb Conc. 33.4 g/dL (32.0-36.0); Platelet Count (auto) 287 10^3/uL (140-450); Red Blood Cells 4.21 10^6/uL (4.5-5.90); Red Cell Distribution Width 14.5 % (11.8-14.3); White Blood Cell 11.9 10^3/uL (4.4-10.8)
[2024-05-25 06:36] LABS: Band Neutrophils % (manual) 0; Basophils % (manual) 0 (0.0-2.0); Blast Cells 0; Eosinophils % (manual) 0 (0-7); Metamyelocytes % 0; Myelocytes % 0; Promyelocytes % 0; Reactive Lymphocytes 0
[2024-05-25 06:54] LABS: Lymphocytes % (manual) 4 (10.0-50.0); Monocytes % (manual) 4 (0-12)
[2024-05-25 06:55] LABS: Platelet Estimate Adequate
[2024-05-25 08:26] LABS: Urine Bacteria None Seen /hpf (None Seen)
[2024-05-25 08:46] LABS: Urine Blood Negative /uL (Negative); Urine Clarity Clear (Clear); Urine Color Yellow (Yellow); Urine Protein, UAD 1+ (Negative); Urine Specific Gravity 1.019 (1.001-1.035); Urine Urobilinogen Normal (Negative); Urine WBC 1 /hpf (0 - 3); Urine pH 5.5 (5.0-9.0)
[2024-05-25 08:58] LABS: Amphetamine Screen, Urine Neg (NEGATIVE)
[2024-05-25 08:59] LABS: Benzodiazephine Screen, Urine Neg (NEGATIVE)
[2024-05-25 09:00] LABS: Barbiturate Scree,Urine Neg (NEGATIVE); Cannabinoid Screen, Urine Neg (NEGATIVE); Cocaine Screen, Urine Neg (NEGATIVE); Opiate Scree,Urine Neg (NEGATIVE); Phencyclidine Screen, Urine Neg (NEGATIVE)
[2024-05-25] MEDS: IPRATROPIUM BROM 0.5 MG/2.5ML INH SOL NEB PRN (09:39)
[2024-05-25] MEDS ORDERED: HEPARIN SODIUM (PORCINE) 5000 UNITS/ML 1ML VIAL IV SCH (10:00)
[2024-05-25] MEDS: ENOXAPARIN SOD 100 MG/1 ML SYRINGE SC ONE (10:30)
[2024-05-25] MEDS: ASPirin-EC 81 mg tab PO SCH (10:31)
[2024-05-25] MEDS: FAMOTIDINE 20 MG TAB PO SCH (10:31)
[2024-05-25] MEDS: FUROSEMIDE 40 MG/4 ML VIAL IV SCH (10:32)
[2024-05-25] MEDS: cloNIDine HCL 0.1 MG TAB PO PRN (12:03)
[2024-05-25] MEDS: NIFEdipine ER 30 MG TAB PO ONE (13:26)
[2024-05-25] MEDS: CARVEDILOL 12.5 MG TAB PO SCH (21:35)
[2024-05-26] VITALS (8 sets, daily range): BP systolic 146–166; BP diastolic 85–104; PULSE 90–103; RESP 17–20; TEMP 98–98.2; O2SAT 90–96
[2024-05-26 06:18] LABS: Chloride 103 mmol/L (98-107); Potassium 3.7 mmol/L (3.5-5.1); Sodium 141 mmol/L (136-145)
[2024-05-26 06:19] LABS: Anion Gap 6 (5-15); Calcium 9.1 mg/dL (8.7-10.4); Carbon Dioxide 32 mmol/L (20-31)
[2024-05-26 06:24] LABS: BUN/Creatinine Ratio 14.6 (10.0-20.0); Blood Urea Nitrogen 25 mg/dL (9-23); Glucose 116 mg/dL (74-106)
[2024-05-26] MEDS: NIFEdipine ER 30 MG TAB PO SCH (12:03)
[2024-05-26] MEDS: ENOXAPARIN SOD 100 MG/1 ML SYRINGE SC SCH (12:03)
[2024-05-26] MEDS: hydrALAZINE HCL 20 MG/ML VL IV PRN (13:13)
[2024-05-27] VITALS (12 sets, daily range): BP systolic 139–156; BP diastolic 52–95; PULSE 75–93; RESP 17–22; TEMP 97.3–98.3; O2SAT 89–96
[2024-05-27 06:20] LABS: Chloride 99 mmol/L (98-107); Potassium 3.2 mmol/L (3.5-5.1); Sodium 139 mmol/L (136-145)
[2024-05-27 06:21] LABS: Anion Gap 6 (5-15); Calcium 9.2 mg/dL (8.7-10.4); Carbon Dioxide 34 mmol/L (20-31)
[2024-05-27 06:26] LABS: BUN/Creatinine Ratio 15.7 (10.0-20.0); Blood Urea Nitrogen 25 mg/dL (9-23); Glucose 111 mg/dL (74-106)
[2024-05-27] MEDS: POTASSIUM CHL 20 Meq TABLET PO ONE (16:55)
[2024-05-27] MEDS: POTASSIUM CHL 20 Meq TABLET PO SCH (21:08)
[2024-05-28] VITALS (8 sets, daily range): BP systolic 136–164; BP diastolic 88–106; PULSE 82–97; RESP 16–20; TEMP 97.7–98.9; O2SAT 85–93
[2024-05-28 07:47] LABS: Anion Gap 6 (5-15); Calcium 9.6 mg/dL (8.7-10.4); Carbon Dioxide 33 mmol/L (20-31); Chloride 99 mmol/L (98-107); Potassium 3.4 mmol/L (3.5-5.1); Sodium 138 mmol/L (136-145)
[2024-05-28 07:53] LABS: Glucose 115 mg/dL (74-106)
[2024-05-28 07:54] LABS: BUN/Creatinine Ratio 15.2 (10.0-20.0); Blood Urea Nitrogen 24 mg/dL (9-23)
[2024-05-29] VITALS (8 sets, daily range): BP systolic 138–169; BP diastolic 82–103; PULSE 81–98; RESP 17–22; TEMP 97.7–98.7; O2SAT 90–95
[2024-05-29] MEDS: APIXABAN 5 MG TAB PO SCH (22:15)
[2024-05-30] VITALS (8 sets, daily range): BP systolic 136–164; BP diastolic 71–95; PULSE 78–95; RESP 17–21; TEMP 97.9–98.7; O2SAT 83–95
[2024-05-30 07:07] LABS: Anion Gap 8 (5-15); Carbon Dioxide 32 mmol/L (20-31); Chloride 99 mmol/L (98-107); Potassium 3.3 mmol/L (3.5-5.1); Sodium 139 mmol/L (136-145)
[2024-05-30 07:08] LABS: Calcium 9.4 mg/dL (8.7-10.4)
[2024-05-30 07:13] LABS: BUN/Creatinine Ratio 14.7 (10.0-20.0); Blood Urea Nitrogen 27 mg/dL (9-23); Glucose 154 mg/dL (74-106)
[2024-05-30 07:17] LABS: Basophils # (auto) 0 10 ^3/uL (0-0.2); Basophils % (auto) 0.3 % (0.0-2.0); Eosinophils # (auto) 0.6 10 ^3/uL (0-0.8); Eosinophils % (auto) 5.8 % (0.0-7.0); Hemoglobin 12.9 g/dL (13.5-17.5); Lymphocytes # (auto) 1.4 10 ^3/uL (0.4-5.4); Lymphocytes % (auto) 13.6 % (10.0-50.0); Mean Corpuscular Hemoglobin 32.1 pg (28.0-32.0); Mean Corpuscular Hgb Conc. 33.8 g/dL (32.0-36.0); Mean Corpuscular Volume 94.9 fL (80.0-100.0); Monocytes % (auto) 10.2 % (0.0-12.0); Neutrophils # (auto) 7.2 10 ^3/uL (1.6-8.6); Neutrophils % (auto) 70.1 % (37.0-80.0); Platelet Count (auto) 279 10^3/uL (140-450); Red Cell Distribution Width 14.4 % (11.8-14.3); White Blood Cell 10.3 10^3/uL (4.4-10.8)
[2024-05-30] MEDS ORDERED: IOHEXOL 350 MG/ML 100ML IJ ONE (09:33)
[2024-05-30] MEDS: SODIUM CHLORIDE 0.9% 250 ML IV ONE (14:15)
[2024-05-30] MEDS: DOXYCYCLINE 100MG/250ML 250 ML IV SCH (18:49)
[2024-05-30] MEDS: ALBUMIN 25% 50 ML IV SCH (21:16)
[2024-05-30] MEDS: hydrALAZINE HCL 25 MG TAB PO SCH (21:19)
[2024-05-30] MEDS: ACETYLCYSTEINE ORAL for CIN 20%(200MG/ML) 4ML PO SCH (21:35)
[2024-05-31] VITALS (7 sets, daily range): BP systolic 138–159; BP diastolic 88–98; PULSE 81–90; RESP 15–20; TEMP 98–98.4; O2SAT 85–98
[2024-05-31 05:52] LABS: Anion Gap 5 (5-15); Carbon Dioxide 31 mmol/L (20-31); Chloride 100 mmol/L (98-107); Potassium 3.9 mmol/L (3.5-5.1); Sodium 136 mmol/L (136-145)
[2024-05-31 05:54] LABS: Calcium 9.5 mg/dL (8.7-10.4)
[2024-05-31 05:58] LABS: BUN/Creatinine Ratio 17.1 (10.0-20.0); Blood Urea Nitrogen 29 mg/dL (9-23); Glucose 117 mg/dL (74-106)
[2024-05-31] MEDS: ISOSORBIDE MONONITRATE ER 60 MG TAB PO SCH (10:28)
[2024-05-31] MEDS: hydrALAZINE HCL 25 MG TAB PO SCH (10:31)
[2024-05-31] MEDS ORDERED: SACU1TAB PO (13:45)
[2024-05-31] MEDS ORDERED: ISO60SRT PO (13:45)
[2024-05-31] MEDS ORDERED: ATOR20TA50 PO (13:45)
[2024-05-31] MEDS ORDERED: CARV-216 PO (13:45)
[2024-05-31] MEDS ORDERED: DOXY100C79 PO (13:45)
[2024-05-31] MEDS ORDERED: NIFE1TAB30 PO (13:45)
[2024-05-31] MEDS ORDERED: BUME2TAB5 PO (13:45)
[2024-05-31] MEDS ORDERED: HYDR50TA47 PO (13:45)
== END 2024-05-31 18:45 | disposition home or self-care (01) | DRG 137 ==
LOC: ER 19:02 → TELE 23:15 → TELE-E-ADS 05-25 16:01
PROVIDERS: ADMIT Nurse Practitioner Family; ATTEND Internal Medicine
DX: J15.69 Pneumonia due to other Gram-negative bacteria (principal); I50.31 Acute diastolic (congestive) heart failure; I11.0 Hypertensive heart disease with heart failure; E78.5 Hyperlipidemia, unspecified; I16.0 Hypertensive urgency; J15.9 Unspecified bacterial pneumonia; R09.02 Hypoxemia; Z79.1 Long term (current) use of non-steroidal anti-inflammatories (NSAID); Z79.899 Other long term (current) drug therapy; Z86.73 Personal history of transient ischemic attack (TIA), and cerebral infarction without residual deficits; Z82.49 Family history of ischemic heart disease and other diseases of the circulatory system; Z91.199 Patient's noncompliance with other medical treatment and regimen due to unspecified reason
CPT/HCPCS: 36415; 71045; 71275; 78582; 80048; 80053; 80307; 81001; 83735; 83880; 84484; 85007; 85025; 85027; 85379; 85610; 93005; 93306; 93970; 94640; 99291; G0378; J3490